=== PATIENT | male | born 1960 | race Caucasian/White ===

== ENCOUNTER 2018-07-03 06:53 | Day surgery (SDC) | payer OTHER ==
[2018-07-03] MEDS ORDERED: NS 1,000 ML IV ONE (07:01)
[2018-07-03 07:44] LABS: PLATELET COUNT 202 10^3/uL (150-400)
[2018-07-03 07:53] LABS: INR 0.99 (0.83-1.16); PROTIME(PATIENT) 13.3 SEC (12.0-15.0)
[2018-07-03] MEDS ORDERED: LIDOCAINE 1% 300 MG/30 ML SDV ONE (08:02)
[2018-07-03] MEDS ORDERED: HEPARIN 10,000 UNIT/10 ML MDV (1,000 UNIT/ML) ONE (08:02)
[2018-07-03] MEDS ORDERED: ISOPROTERENOL HCL/D5W 0.2 MG/50 ML BAG IV ONE ×2 (08:02→10:05)
[2018-07-03] MEDS ORDERED: BUPIVACAINE 0.75% 10 ML SDV ONE (08:02)
[2018-07-03] MEDS ORDERED: MIDAZOLAM 2 MG/2 ML VIAL IVP ONE (08:32)
--- NOTE | 2018-07-03 08:32 | PDANEPAE ---
ANE History of Present Illness WPW ANE Past Medical History - Cardiovascular History Hx Hypertension: Yes Hx Arrhythmias: Yes Hx Coronary Artery / Peripheral Vascular Disease: Yes Hx CHF / Valvular Disease: No Hx Palpitations: Yes - Pulmonary History Hx COPD: No Hx Asthma/Reactive Airway Disease: No Hx Sleep Apnea: No ANE Review of Systems Review of systems is: negative Review of Systems: - Exercise capacity Exercise capacity: >=4 METS ANE Patient History - Allergies Allergies/Adverse Reactions: No Known Allergies Allergy (Verified 06/27/18 08:18) - Home Medications Home medications: home medication list seen and reviewed Home Medications: Aspirin [Aspirin 81mg (*)] 81 mg PO BID 06/27/18 [Last Taken 07/02/18 20:00] Atorvastatin Calcium [Lipitor 20 mg (*)] 20 mg PO HS 07/03/18 [Last Taken ] Cholecalciferol Vit D3 [Vitamin D3 (*)] 1,000 units PO DAILY 07/03/18 [Last Taken Unknown] Cyanocobalamin [Vitamin B12 (*)] 1,000 mcg PO DAILY 07/03/18 [Last Taken Unknown ] Herbals/Supplements -Info Only 1 ea PO DAILY 07/03/18 [Last Taken Unknown] Ibuprofen [Motrin (*)] 200 mg PO DAILY PRN 07/03/18 [Last Taken Unknown] Lisinopril [Zestril 20 mg (*)] 20 mg PO BID 07/03/18 [Last Taken 07/02/18 20:00] Naproxen Sodium [Aleve 220 MG (*)] 220 mg PO BID PRN 07/03/18 [Last Taken Unknown] clonazePAM [Klonopin (*)] 0.5 mg PO DAILY PRN 07/03/18 [Last Taken Unknown] diphenhydrAMINE [Benadryl 25 MG (*)] 25 - 75 mg PO HS PRN 07/03/18 [Last Taken 07/02/18 20:00 50mg] - Anes Hx Anes Hx: no prior problems - Smoking Hx Smoking Status: Former smoker ANE Labs/Vital Signs - Labs Result Diagrams: 07/03/18 07:30 07/03/18 07:30 - Vital Signs Height: 178 cm Weight: 87.1 kg ANE Physical Exam - Airway Neck exam: FROM Mallampati Score: Class 2 Mouth exam: normal dental/mouth exam - Pulmonary Pulmonary: no respiratory distress - Cardiovascular Cardiovascular: regular rate and rhythym - ASA Status ASA Status: III ANE Anesthesia Plan Anesthesia Plan: general endotracheal anesthesia Urgent/Emergent Case: Carolina harrison completed preop but documented later for safe timely pt care
[2018-07-03] MEDS ORDERED: fentaNYL 100 MCG/2 ML INJ ONE ×2 (08:37)
[2018-07-03] MEDS ORDERED: PROPOFOL 200 MG/20 ML VIAL ONE (08:37)
[2018-07-03] MEDS ORDERED: ROCURONIUM 50 MG/5 ML VIAL ONE (08:39)
[2018-07-03] MEDS ORDERED: DEXAMETHASONE 4 MG/ML VIAL ONE (08:39)
--- NOTE | 2018-07-03 08:40 | PDGENHP ---
History & Physical Chief Complaint: wpw syndrome Relevant Physical Exam: [id number] rrr cta ao3 Cardiorespiratory Assessment: for eps and poss ablation
--- NOTE | 2018-07-03 09:25 | POSTANESTH ---
Post Anesthetic Evaluation Cardiovascular Status: Normal, Stable Respiratory Status: Normal, Stable Level of Consciousness/Mental Status: Can Participate in Eval, Alert and Oriented Pain Control: Adequate, Prn Tx Ordered Nausea/Vomiting Control: Adequate, Prn Tx Ordered Complications Possibly Related to Anesthesia: None Noted
[2018-07-03] MEDS ORDERED: METOCLOPRAMIDE 10 MG/2 ML VIAL IVP PRN (09:49)
[2018-07-03] MEDS ORDERED: NALOXONE HCL 0.4 MG/ML INJ IVP PRN (09:49)
[2018-07-03] MEDS ORDERED: ONDANSETRON 4 MG/2 ML VIAL IVP PRN (09:49)
[2018-07-03] MEDS ORDERED: oxyCODONE IR 5 MG TAB PO PRN (09:49)
[2018-07-03] MEDS ORDERED: HYDROCODONE/APAP 5/325 TAB PO PRN (09:49)
[2018-07-03] MEDS ORDERED: PROMETHAZINE HCL 25 MG/ML INJ IVP PRN (09:49)
[2018-07-03] MEDS ORDERED: fentaNYL 100 MCG/2 ML INJ IVP PRN (09:49)
[2018-07-03] MEDS ORDERED: ACETAMINOPHEN 500 MG TAB PO PRN (09:49)
[2018-07-03] MEDS ORDERED: HYDROmorphONE/DILAUDID 2 MG/ML INJ IVP PRN (09:49)
[2018-07-03] MEDS ORDERED: ALBUTEROL 3 ML DEYVIAL IH PRN (09:49)
[2018-07-03] MEDS ORDERED: NS 500 ML IV PRN (09:49)
[2018-07-03] MEDS ORDERED: SUGAMMADEX SODIUM 200 MG/2 ML VIAL IVP ONE (10:09)
[2018-07-03] MEDS ORDERED: PHENYLEPHRINE HCL 100 MCG/ML SYR ONE (10:23)
[2018-07-03] MEDS ORDERED: ePHEDrine SULFATE 25 MG/5 ML SYR ONE ×2 (10:23)
[2018-07-03] MEDS ORDERED: NAPROXEN SODIUM 220 MG TAB PO PRN (10:31)
[2018-07-03] MEDS ORDERED: IBUPROFEN 200 MG TAB PO PRN (10:31)
[2018-07-03] MEDS ORDERED: diphenhydrAMINE 25 MG CAP PO PRN (10:31)
[2018-07-03] MEDS ORDERED: clonazePAM 0.5 MG TAB PO PRN (10:31)
--- NOTE | 2018-07-03 11:03 | EPPROC ---
Electrophysiology Procedure Note: DIAGNOSTIC ELECTROPHYSIOLOGIC STUDY Procedures performed: 1. Fluoroscopy 2. EP evaluation with RA/RV/LA pace/record, with arrhythmia induction 3. EP evaluation with RA/RV pace record, insert/reposition catheter, with arrhythmia induction 4. [id number] Programmed stimulation + pacing after IV drug INDICATION: Intermittent ventricular preexcitation Palpitations PROCEDURE: Catheters & Anesthesia: The patient arrived in the Electrophysiology Laboratory in the fasting state. The right clavicular region, right groin, & left groin area were prepped & draped in the usual sterile manner. Anesthesa was administered by Dr. Tiki Arriaza. Appropriate non-invasive blood pressure, pulse oximetry & end-tidal CO2 monitoring was established. All catheters were placed percutaneously using the modified Seldinger technique , and advanced into position under fluoroscopic guidance. One #6 Croatian hexapolar non-deflectable electrode catheter was inserted into the right atrial appendage via the left femoral vein (2mm spacing; except the proximal ring which was 25cm from the tip used for unipolar recordings). One #7 Croatian deflectable octapolar electrode catheter was advanced to the His-bundle position via the left femoral vein (2mm spacing). One #7 Croatian deflectable quadrapolar catheter was advanced to the anteroseptal right ventricle via the right femoral vein. One #7 Croatian deflectable catheter with 10 pairs of electrodes was placed via the right femoral vein into the coronary sinus. Programmed stimulation was performed from the right atrium, right ventricle and coronary sinus (left atrium). Parahisian pacing demonstrated constant H-A interval with changing V-A intervals and stimulus-A intervals during capture and loss of capture of proximal RBB proving retrograde conduction over AV node. Heparin was administered to keep ACT > 200 seconds. No sustained reentrant tachycardia was induced during programmed stimulation at baseline or during graded doses of isoproterenol up to 8 mcg/min. Atrial flutter >30s was induced x 1, not targeted for ablation. There was intermittent ventricular preexcitation, consistent with a septal accessory pathway, but it persisted to 690 ms on isoproterenol 4 mcg/min. There was no retrograde conduction over AP. No SVT could be induced. No ablation was performed. The catheters were removed. Pursestring sutures were applied to vascular access sites and sheaths were removed in EP lab. The patient was transferred to the cardiovascular holding area in stable condition. There were no apparent complications. Results: A. Spontaneous Intervals: SCL 780 ms AH 75 ms HV 40 ms B. Antegrade AV amanda function (decremental pacing) FPERP 340 ms WBB CL 330 ms C. Retrograde AV amanda function (decremental pacing) FPERP 690 ms WBB CL 680 ms CONCLUSIONS 1. Normal sinus and AV node function. 2. 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 No SVT inducible. No ablation performed. 3. No apparent complications. Patient Problems: Problems Problem Status Onset WPW ([id number]-[id number] syndrome) Acute
[2018-07-03 17:19] VITALS: BP 148/102
[2018-07-03] MEDS ORDERED: LISINOPRIL 20 MG TAB PO SCH (21:00)
[2018-07-03] MEDS ORDERED: ATORVASTATIN CALCIUM 20 MG TAB PO SCH (21:00)
[2018-07-03] MEDS ORDERED: ASPIRIN 81 MG CHEWABLE TAB PO SCH (21:00)
[2018-07-04] MEDS ORDERED: ASPIRIN 81 MG CHEWABLE TAB PO SCH (09:00)
[2018-07-04] MEDS ORDERED: CHOLECALCIFEROL VIT D3 1,000 UNITS TAB PO SCH (09:00)
[2018-07-04] MEDS ORDERED: CYANO/VITAMIN B12 1000 MCG TAB PO SCH (09:00)
--- NOTE | 2018-07-05 16:31 | CPEKG ---
Test Reason : OPEN Blood Pressure : / mmHG Vent. Rate : 075 BPM Atrial Rate : 073 BPM P-R Int : 176 ms QRS Dur : 091 ms QT Int : 406 ms P-R-T Axes : 014 030 038 degrees QTc Int : 454 ms Sinus rhythm Confirmed by Sai Nj ([id number]) on 07/05/2018 4:31:11 PM Referred By: Zion aMrtins Confirmed By:Sai Nj
== END 2018-07-03 17:15 | disposition home or self-care (01) ==
LOC: FCATH 06:53
PROVIDERS: ATTEND Internal Medicine Cardiovascular Disease
DX: I45.6 Pre-excitation syndrome (principal); I10 Essential (primary) hypertension; Z87.891 Personal history of nicotine dependence
CPT/HCPCS: 93005; 93620; 93621; 93623; C1730; C1731; J1100; J1644; J2250; J2370; J2704; J3010